=== PATIENT | male | born 1980 | race Caucasian/White ===

== ENCOUNTER 2021-02-05 16:29 | Emergency (ER) | payer MEDICARE, MEDICAID, SELFPAY ==
[2021-02-05 16:47] VITALS: BP 141/95; BP 148/86; PULSE 105; PULSE 110; RESP 14; TEMP 36.9; O2SAT 95; O2SAT 98; BMI 29.0
[2021-02-05 17:07] VITALS: BP 128/92; PULSE 112; RESP 14; TEMP 36.8; O2SAT 97
[2021-02-05 18:17] VITALS: BP 138/65; PULSE 103; RESP 16
[2021-02-05 18:29] LABS: COVID-19 Test Negative (Negative); IDNOW Serial# 9DD0AD1C
[2021-02-05] MEDS: LORazepam 1 MG TABLET 2 MG PO (18:30)
--- NOTE | 2021-02-05 19:32 | ED_ITS ---
HPI - General Adult General Chief complaint: General Medical <PAXTON Walker - Last Filed: 02/05/21 20:40> Stated complaint: Anxiety <PAXTON Walker Last Filed: 02/05/21 20:40> Time Seen by Provider: 02/05/21 16:41 <PAXTON Walker Last Filed: 02/05/21 20:40> Source: patient <PAXTON Walker Last Filed: 02/05/21 20:40> Mode of arrival: ambulatory <PAXTON Walker Last Filed: 02/05/21 20:40> Limitations: no limitations <PAXTON Walker Last Filed: 02/05/21 20:40> History of Present Illness HPI narrative: 40-year-old male presents for racing thoughts, jesús, and panic attack prior to arrival. Patient was discharged from [facility] inpatient psychiatiatic unit yesterday for suicidal ideation. Patient states he stopped drinking 2 weeks ago, and was supposed to go to an outpatient program but did not want to go. He did want to go because he has a lot of stress at home, he is trying to adopt his son and it is difficult, his is 6 months , and he is living in the [facility], otherwise he will be homeless. States that today he has never been so manic. Patient states that he felt he was not making sense and like he was going to have a seizure and that he could not stop talking. States he had racing speech. He took 20 mg of Zyprexa, Suboxone, and gabapentin prior to arrival, but he still feels like he has racing thoughts. Feels he is seeing things, feels he sees things in the room, and sees people who are not in the room. States he has a history of bipolar, but no psychiatrist. Takes benzadrex, which he states is like [id number] methamphetamine. Patient has had a methamphetamine habit, has not used meth for some time. Denies SI, HI, self-harm. Denies any recent alcohol or drug use. <PAXTON Walker Last Filed: 02/05/21 20:40> MD complaint: jesús <PAXTON Walker Last Filed: 02/05/21 20:40> Onset (ago): day(s) (1) <PAXTON Walker Last Filed: 02/05/21 20:40> Related Data Home medications: Home Medications Medication Instructions Recorded Confirmed Wellbutrin XL 300 mg PO DAILY 02/05/21 02/05/21 buprenorphine 8 mg-naloxone 2 mg strip SUBLINGUAL 02/05/21 sublingual film (Suboxone) gabapentin 800 mg tablet 1 tab PO TID 02/05/21 02/05/21 olanzapine 20 mg tablet 1 tab PO BEDTIME 02/05/21 02/05/21 <PAXTON Walker Last Filed: 02/05/21 20:40> Allergies/adverse reactions: Allergies Allergy/AdvReac Type Severity Reaction Status Date / Time phenobarbital [PHENOBARBITAL] Allergy Unknown HALLUCINATI Unverified 02/18/20 19:02 ONS <PAXTON Walker Last Filed: 02/05/21 20:40> Review of Systems Constitutional: Constitutional: Denies chills, Denies fatigue, Denies fever(s) and Denies headache(s) <PAXTON Walker Last Filed: 02/05/21 20:40> Eyes: Eyes: Denies change in vision <PAXTON Walker Last Filed: 02/05/21 20:40> ENT: Denies dizziness, Denies otalgia, Denies headache(s), Denies disequilibrium, Denies post nasal drip and Denies sore throat <PAXTON Walker Last Filed: 02/05/21 20:40> Cardiovascular: Cardiovascular: Denies chest pain, Denies rapid heart rate and Denies dyspnea <PAXTON Walker Last Filed: 02/05/21 20:40> Respiratory: Respiratory: Denies chest congestion, Denies cough and Denies dyspnea <PAXTON Walker Last Filed: 02/05/21 20:40> Gastrointestinal: Gastrointestinal: Denies abdominal pain, Denies diarrhea, Denies nausea and Denies vomiting <PAXTON Walker Last Filed: 02/05/21 20:40> Genitourinary: Genitourinary: Reports no additional male genitourinary complaints <PAXTON Walker Last Filed: 02/05/21 20:40> Musculoskeletal: Musculoskeletal: Denies numbness and Reports tingling < PAXTON Walker - Last Filed: 02/05/21 20:40> Comments: Feels like the soles of his feet are tingly. <PAXTON Walker - Last Filed: 02/05/21 20:40> Integumentary/Breasts: Skin/Breast: Denies rash <PAXTON Walker - Last Filed: 02/05/21 20:40> Neurologic: Reports behavioral changes, Denies dizziness, Denies headache(s), Denies focal weakness, Denies numbness, Denies seizure-like activity, Denies Sensory deficit (Neuro), Reports tingling and Denies disequilibrium <PAXTON Walker Last Filed: 02/05/21 20:40> Comments: Feels like he might have a seizure although he is not diagnosed with a seizure disorder <PAXTON Walker Last Filed: 02/05/21 20:40> Psychiatric: Psychiatric: Reports behavioral changes, Reports difficulty concentrating, Reports panic attacks, Reports visual hallucinations, Denies homicidal ideation and Denies suicidal ideation <PAXTON Walker - Last Filed: 02/05/21 20:40> Endocrine: Endocrine: Denies fatigue <PAXTON Walker Last Filed: 02/05/21 20:40> [facility] Social History Social History: Social History Alcohol intake: never Patient Tobacco Use Status: Current everyday Tobacco user Use of substances other than those prescribed or required for medical reasons: No Advance Directives: No Advance Directives Information Provided: No <PAXTON Walker - Last Filed: 02/05/21 20:40> Physical Exam Vital Signs: Vital Signs: Last Vital Signs Temp 97.0 F 02/05/21 21:14 Pulse 102 H 02/05/21 21:14 Resp 18 02/05/21 21:14 BP 138/89 02/05/21 21:14 Pulse Ox 95 02/05/21 21:14 Body Mass Index 29.0 <PAXTON Walker Last Filed: 02/05/21 20:40> Vital Signs: Last Vital Signs Temp 97.0 F 02/05/21 21:14 Pulse 102 H 02/05/21 21:14 Resp 18 02/05/21 21:14 BP 138/89 02/05/21 21:14 Pulse Ox 95 02/05/21 21:14 Body Mass Index 29.0 <Rosaline Hernández [employer] [facility] Last Filed: 02/05/21 22:50> Const: General: alert, awake and in distress moderate (racing speech); No combative <PAXTON Walker Last Filed: 02/05/21 20:40> Nutritional Appearance: average body habitus <Gloria Devries [employer] [facility] Last Filed: 02/05/21 20:40> Orientation/consciousness: patient oriented x3 <Gloria Devries [employer] [facility] Last Filed: 02/05/21 20:40> HENMT: Head: Yes normal to inspection, Yes normocephalic and Yes atraumatic <PAXTON Walker Last Filed: 02/05/21 20:40> Ears: hearing grossly normal bilaterally <PAXTON Walker Last Filed: 02/05/21 20:40> General nose exam: Normal external nose present <Gloria Devries [employer] [facility] Last Filed: 02/05/21 20:40> Face and sinus: Yes normal facial exam <PAXTON Walker Last Filed: 02/05/21 20:40> Mouth: Normal oral and palatal mucosa present <PAXTON Walker Last Filed: 02/05/21 20:40> Throat: Yes posterior oropharynx normal <PAXTON Walker Last Filed: 02/05/21 20:40> Eyes: Conjunctivae: conjunctivae normal <PAXTON Walker Last Filed: 02/05/21 20:40> Pupils: Equal, round and reactive pupils present <Gloria Devries [employer] [facility] Last Filed: 02/05/21 20:40> EOM: EOMs intact bilaterally <PAXTON Walker Last Filed: 02/05/21 20:40> Neck: Neck: Yes normal visual inspection, Yes full ROM, Yes no meningeal signs, Yes trachea midline and Yes supple <PAXTON Walker Last Filed: 02/05/21 20:40> Resp: Effort & Inspection: normal respiratory effort <PAXTON Walker - Last Filed: 02/05/21 20:40> Auscultation: clear to auscultation bilaterally, no crackles, no rales, no rhonchi and no wheezes <Gloria Devries [employer] [facility] Last Filed: 02/05/21 20:40> Cardio: Rate: regular rate <Gloria Devries [employer] [facility] Last Filed: 02/05/21 20:40> Rhythm: regular rhythm <Gloria Devries [employer] [facility] Last Filed: 02/05/21 20:40> Heart sounds: S1 normal heart sound present and S2 normal heart sound present <Gloria Devries [employer] Last Filed: 02/05/21 20:40> GI: Inspection: Yes normal to inspection <Gloria Devries [employer] [facility] Last Filed: 02/05/21 20:40> Palpation (GI): Soft to palpation and nontender <Gloria Devries [employer] [facility] Last Filed: 02/05/21 20:40> Percussion: Yes normal to percussion <Gloria Devries [employer] [facility] Last Filed: 02/05/21 20:40> Auscultation: normal bowel sounds <Gloria Devries [employer] [facility] Last Filed: 02/05/21 20:40> : General: Yes no CVA tenderness <Gloria Devries [employer] [facility] Last Filed: 02/05/21 20:40> Back/Spine/Pelvis: Back: no CVA tenderness <Gloria Devries [employer] [facility] Last Filed: 02/05/21 20:40> Skin: General skin exam: no rashes or lesions noted <Gloria Devries [employer] [facility] Last Filed: 02/05/21 20:40> Neuro: General: patient oriented x3, gait normal, tone normal, moves all extremities, no meningeal signs and no focal motor deficits <Gloria Devries [employer] [facility] Last Filed: 02/05/21 20:40> Cranial nerves: Yes CN's II-XII intact bilaterally, Yes Facial sensation intact/muscles of mastication intact, Yes Equal, round and reactive pupils prese nt, Yes Bilaterally intact EOM present, Yes Nystagmus not present, Yes Normal facial strength present, Yes Midline tongue present, Yes Ability to bilaterally rotate head present and Yes Ability to bilaterally elevate shoulders present <PAXTON Walker Last Filed: 02/05/21 20:40> Cognition (Neuro): abnormal cognition (racing thoughts) <PAXTON Walker Last Filed: 02/05/21 20:40> Gait exam (Neuro): Normal gait present <PAXTON Walker Last Filed: 02/05/21 20:40> Motor exam (neuro): 5/5 motor strength present throughout and Pronator motor function not present <PAXTON Walker Last Filed: 02/05/21 20:40> Sensory Exam: No Sensory deficit (Neuro) <PAXTON Walker Last Filed: 02/05/21 20:40> Coordination: [id number] test normal and other <PAXTON Walker Last Filed: 02/05/21 20:40> Pupils: Normal pupillary reactivity/response: bilateral <PAXTON Walker Last Filed: 02/05/21 20:40> Extrem: General: Yes no clubbing, cyanosis or edema <PAXTON Walker Last Filed: 02/05/21 20:40> Psych: Appearance: disheveled <PAXTON Walker Last Filed: 02/05/21 20:40> Mental Status: other (manic) <PAXTON Walker Last Filed: 02/05/21 20:40> Speech and movement: Pressured speech present and Restless speech present <PAXTON Walker Last Filed: 02/05/21 20:40> Affect: Labile affect present <PAXTON Walker Last Filed: 02/05/21 20:40> Attitude: cooperative <PAXTON Walker - Last Filed: 02/05/21 20:40> Thought process: Flight of ideas present <PAXTON Walker Last Filed: 02/05/21 20:40> Thought content: suicidality, no homicidality and Hallucination(s) present visual <PAXTON Walker Last Filed: 02/05/21 20:40> Insight: Fair insight present (Psych) <PAXTON Walker Last Filed: 02/05/21 20:40> Course Course Course Narrative: 40-year-old male who was just discharged yesterday for 2 weeks inpatient psychiatric stay for suicidal ideation presents for the worst panic attack in his life that occurred just prior to arrival. On exam, patient has stable vitals, he has pressured speech and is jiggly and cannot stop talking long enough for me to listen to his lungs. I am able to follow patient's train of thought despite his ideas jumping around. I am concerned with his manic symptoms after he has taken 20 of Zyprexa and just being discharged from the hospital for SI. This patient has no follow-up and he has no psychiatrist. Concern for his safety. I did place patient on a Section 12 until he is seen and evaluated by crisis Signed patient out to Dr. Koehler pending crisis evaluation <PAXTON Walker - Last Filed: 02/05/21 20:40> Reevaluation(s) Reevaluation #1: Physician observation started at 10:50pm. He was seen by the CARE team and determined to require inpatient level of care. Patient placed in physician observation because patient is awaiting inpatient psych placement. . At the time observation was started patient's vital signs were stable. Patient is alert and oriented, speaking nonsensically. Neuro exam is non-focal. CV: RRR and lungs are clear. Will continue to monitor. <PAXTON Kc - Last Filed: 02/05/21 22:50> Medical Decision Making Lab Data Result diagrams: : 02/05/21 21:05 02/05/21 21:05 <PAXTON Walker - Last Filed: 02/05/21 20:40> Labs: Lab Results 02/05/21 02/05/21 02/05/21 Range/Units 17:54 20:22 20:50 WBC (4.8-10.8) X10*3/uL RBC (4.60-5.80) X10*6/uL Hgb (14.0-18.0) g/dl Hct (42-52) % MCV (80-98) fL MCH (27.0-33.0) pg MCHC (31.0-36.0) g/dl RDW (11.0-16.0) % Plt Count (160-400) X10*3/uL MPV (9.4-12.4) fL Immature Gran % (Auto) (0.0-0.4) % Neut % (Auto) (45-73) % Lymph % (Auto) (20-40) % Coleman % (Auto) (2-11) % Eos % (Auto) (0-4) % Baso % (Auto) (0-2) % Lymph # (Auto) (1.2-4.9) X10*3/uL Coleman # (Auto) (0.1-1.2) X10*3/uL Eos # (Auto) (0.0-0.4) X10*3/uL Baso # (Auto) (0.0-0.2) X10*3/uL Abs Immat Gran (auto) (0.00-0.03) X10*3/uL Absolute Neuts (auto) (2.0-8.3) X10*3/uL Absolute Nucleated RBC (0.0-0.012) X10*3/uL Nucleated RBC % (auto) (0.0-0.2) /100WBC Sodium (135-145) mmol/L Potassium (3.3-5.1) mmol/L Chloride (96-108) mmol/L Carbon Dioxide (22-29) mmol/L Anion Gap (12-20) BUN (9-16) mg/dL Creatinine (0.5-1.4) mg/dL Estim Creat Clear Calc Estimated GFR Random Glucose (60-115) mg/dL Calcium (8.4-10.2) mg/dL Total Bilirubin (0.0-1.0) mg/dL AST (5-37) U/L ALT (0-40) U/L Alkaline Phosphatase (39-117) U/L Total Protein (6.5-8.0) g/dL Albumin (3.5-5.0) g/dL Urine Color YELLOW Urine Appearance CLEAR Urine pH 6.0 (5.0-8.0) Ur Specific [place] 1.015 (1.005-1.025) Urine Protein NEG (NEG-TRACE) MG/DL Urine Glucose (UA) NEG (NEG) MG/DL Urine Ketones NEG (NEG) MG/DL Urine Blood NEG (NEG) Urine Nitrite NEG (NEG) Ur Leukocyte Esterase NEG (NEG) Urine Opiates Screen Not Detected (Not Detect) Urine Fentanyl Screen POSITIVE H (Not Detect) Ur Barbiturates Screen Not Detected (Not Detect) Ur Phencyclidine Scrn Not Detected (Not Detect) Ur Amphetamines Screen POSITIVE H (Not Detect) U Benzodiazepines Scrn Not Detected (Not Detect) Urine Cocaine Screen POSITIVE H (Not Detect) U Marijuana (THC) Screen POSITIVE H (Not Detect) COVID-19 (JULI) Negative (Negative) COVID-19 Clin Com See Note 02/05/21 02/05/21 Range/Units 21:05 21:05 WBC 7.9 (4.8-10.8) X10*3/uL RBC 4.25 L (4.60-5.80) X10*6/uL Hgb 12.9 L (14.0-18.0) g/dl Hct 37.9 L (42-52) % MCV 89.2 (80-98) fL MCH 30.4 (27.0-33.0) pg MCHC 34.0 (31.0-36.0) g/dl RDW 13.7 (11.0-16.0) % Plt Count 251 (160-400) X10*3/uL MPV 10.2 (9.4-12.4) fL Immature Gran % (Auto) 1.1 H (0.0-0.4) % Neut % (Auto) 41.5 L (45-73) % Lymph % (Auto) 33.1 (20-40) % Coleman % (Auto) 15.5 H (2-11) % Eos % (Auto) 7.9 H (0-4) % Baso % (Auto) 0.9 (0-2) % Lymph # (Auto) 2.6 (1.2-4.9) X10*3/uL Coleman # (Auto) 1.2 (0.1-1.2) X10*3/uL Eos # (Auto) 0.6 H (0.0-0.4) X10*3/uL Baso # (Auto) 0.1 (0.0-0.2) X10*3/uL Abs Immat Gran (auto) 0.09 H (0.00-0.03) X10*3/uL Absolute Neuts (auto) 3.3 (2.0-8.3) X10*3/uL Absolute Nucleated RBC 0.000 (0.0-0.012) X10*3/uL Nucleated RBC % (auto) 0.0 (0.0-0.2) /100WBC Sodium 139 (135-145) mmol/L Potassium 4.3 (3.3-5.1) mmol/L Chloride 106 (96-108) mmol/L Carbon Dioxide 24 (22-29) mmol/L Anion Gap 13 (12-20) BUN 16 (9-16) mg/dL Creatinine 0.99 (0.5-1.4) mg/dL Estim Creat Clear Calc 123.3 Estimated GFR > 60 Random Glucose 111 (60-115) mg/dL Calcium 9.4 (8.4-10.2) mg/dL Total Bilirubin 0.3 (0.0-1.0) mg/dL AST 28 (5-37) U/L ALT 34 (0-40) U/L Alkaline Phosphatase 61 (39-117) U/L Total Protein 6.9 (6.5-8.0) g/dL Albumin 4.2 (3.5-5.0) g/dL Urine Color Urine Appearance Urine pH (5.0-8.0) Ur Specific [place] (1.005-1.025) Urine Protein (NEG-TRACE) MG/DL Urine Glucose (UA) (NEG) MG/DL Urine Ketones (NEG) MG/DL Urine Blood (NEG) Urine Nitrite (NEG) Ur Leukocyte Esterase (NEG) Urine Opiates Screen (Not Detect) Urine Fentanyl Screen (Not Detect) Ur Barbiturates Screen (Not Detect) Ur Phencyclidine Scrn (Not Detect) Ur Amphetamines Screen (Not Detect) U Benzodiazepines Scrn (Not Detect) Urine Cocaine Screen (Not Detect) U Marijuana (THC) Screen (Not Detect) COVID-19 (JULI) (Negative) COVID-19 Clin Com <PAXTON Walker - Last Filed: 02/05/21 20:40> Lab Results 02/05/21 02/05/21 02/05/21 Range/Units 17:54 20:22 20:50 WBC (4.8-10.8) X10*3/uL RBC (4.60-5.80) X10*6/uL Hgb (14.0-18.0) g/dl Hct (42-52) % MCV (80-98) fL MCH (27.0-33.0) pg MCHC (31.0-36.0) g/dl RDW (11.0-16.0) % Plt Count (160-400) X10*3/uL MPV (9.4-12.4) fL Immature Gran % (Auto) (0.0-0.4) % Neut % (Auto) (45-73) % Lymph % (Auto) (20-40) % Coleman % (Auto) (2-11) % Eos % (Auto) (0-4) % Baso % (Auto) (0-2) % Lymph # (Auto) (1.2-4.9) X10*3/uL Coleman # (Auto) (0.1-1.2) X10*3/uL Eos # (Auto) (0.0-0.4) X10*3/uL Baso # (Auto) (0.0-0.2) X10*3/uL Abs Immat Gran (auto) (0.00-0.03) X10*3/uL Absolute Neuts (auto) (2.0-8.3) X10*3/uL Absolute Nucleated RBC (0.0-0.012) X10*3/uL Nucleated RBC % (auto) (0.0-0.2) /100WBC Sodium (135-145) mmol/L Potassium (3.3-5.1) mmol/L Chloride (96-108) mmol/L Carbon Dioxide (22-29) mmol/L Anion Gap (12-20) BUN (9-16) mg/dL Creatinine (0.5-1.4) mg/dL Estim Creat Clear Calc Estimated GFR Random Glucose (60-115) mg/dL Calcium (8.4-10.2) mg/dL Total Bilirubin (0.0-1.0) mg/dL AST (5-37) U/L ALT (0-40) U/L Alkaline Phosphatase (39-117) U/L Total Protein (6.5-8.0) g/dL Albumin (3.5-5.0) g/dL Urine Color YELLOW Urine Appearance CLEAR Urine pH 6.0 (5.0-8.0) Ur Specific [place] 1.015 (1.005-1.025) Urine Protein NEG (NEG-TRACE) MG/DL Urine Glucose (UA) NEG (NEG) MG/DL Urine Ketones NEG (NEG) MG/DL Urine Blood NEG (NEG) Urine Nitrite NEG (NEG) Ur Leukocyte Esterase NEG (NEG) Urine Opiates Screen Not Detected (Not Detect) Urine Fentanyl Screen POSITIVE H (Not Detect) Ur Barbiturates Screen Not Detected (Not Detect) Ur Phencyclidine Scrn Not Detected (Not Detect) Ur Amphetamines Screen POSITIVE H (Not Detect) U Benzodiazepines Scrn Not Detected (Not Detect) Urine Cocaine Screen POSITIVE H (Not Detect) U Marijuana (THC) Screen POSITIVE H (Not Detect) COVID-19 (JULI) Negative (Negative) COVID-19 Clin Com See Note 02/05/21 02/05/21 Range/Units 21:05 21:05 WBC 7.9 (4.8-10.8) X10*3/uL RBC 4.25 L (4.60-5.80) X10*6/uL Hgb 12.9 L (14.0-18.0) g/dl Hct 37.9 L (42-52) % MCV 89.2 (80-98) fL MCH 30.4 (27.0-33.0) pg MCHC 34.0 (31.0-36.0) g/dl RDW 13.7 (11.0-16.0) % Plt Count 251 (160-400) X10*3/uL MPV 10.2 (9.4-12.4) fL Immature Gran % (Auto) 1.1 H (0.0-0.4) % Neut % (Auto) 41.5 L (45-73) % Lymph % (Auto) 33.1 (20-40) % Coleman % (Auto) 15.5 H (2-11) % Eos % (Auto) 7.9 H (0-4) % Baso % (Auto) 0.9 (0-2) % Lymph # (Auto) 2.6 (1.2-4.9) X10*3/uL Coleman # (Auto) 1.2 (0.1-1.2) X10*3/uL Eos # (Auto) 0.6 H (0.0-0.4) X10*3/uL Baso # (Auto) 0.1 (0.0-0.2) X10*3/uL Abs Immat Gran (auto) 0.09 H (0.00-0.03) X10*3/uL Absolute Neuts (auto) 3.3 (2.0-8.3) X10*3/uL Absolute Nucleated RBC 0.000 (0.0-0.012) X10*3/uL Nucleated RBC % (auto) 0.0 (0.0-0.2) /100WBC Sodium 139 (135-145) mmol/L Potassium 4.3 (3.3-5.1) mmol/L Chloride 106 (96-108) mmol/L Carbon Dioxide 24 (22-29) mmol/L Anion Gap 13 (12-20) BUN 16 (9-16) mg/dL Creatinine 0.99 (0.5-1.4) mg/dL Estim Creat Clear Calc 123.3 Estimated GFR > 60 Random Glucose 111 (60-115) mg/dL Calcium 9.4 (8.4-10.2) mg/dL Total Bilirubin 0.3 (0.0-1.0) mg/dL AST 28 (5-37) U/L ALT 34 (0-40) U/L Alkaline Phosphatase 61 (39-117) U/L Total Protein 6.9 (6.5-8.0) g/dL Albumin 4.2 (3.5-5.0) g/dL Urine Color Urine Appearance Urine pH (5.0-8.0) Ur Specific [place] (1.005-1.025) Urine Protein (NEG-TRACE) MG/DL Urine Glucose (UA) (NEG) MG/DL Urine Ketones (NEG) MG/DL Urine Blood (NEG) Urine Nitrite (NEG) Ur Leukocyte Esterase (NEG) Urine Opiates Screen (Not Detect) Urine Fentanyl Screen (Not Detect) Ur Barbiturates Screen (Not Detect) Ur Phencyclidine Scrn (Not Detect) Ur Amphetamines Screen (Not Detect) U Benzodiazepines Scrn (Not Detect) Urine Cocaine Screen (Not Detect) U Marijuana (THC) Screen (Not Detect) COVID-19 (JULI) (Negative) COVID-19 Clin Com <PAXTON Kc - Last Filed: 02/05/21 22:50> Discharge Plan Discharge Clinical Impression: Jesús <PAXTON Walker - Last Filed: 02/05/21 20:40> Prescriptions: No Action gabapentin 800 mg tablet 1 tab PO TID RF: 0 olanzapine 20 mg tablet 1 tab PO BEDTIME RF: 0 buprenorphine-naloxone [Suboxone] 8-2 mg film sublingual RF: 0 Wellbutrin XL 300 mg PO DAILY RF: 0 <PAXTON Walker - Last Filed: 02/05/21 20:40>
--- NOTE | 2021-02-05 20:53 | PC.NURSE ---
Patient calm cooperative. Eating in room. Pending phlebotomy to draw labs and crisis consult.
[2021-02-05 20:59] LABS: Glucose Urine UA NEG (NEG); Leukocyte Esterase Urine NEG (NEG); Nitrite Urine NEG (NEG); Specific Gravity - Urine 1.015 (1.005-1.025); Urine Blood NEG (NEG); Urine Ketones NEG (NEG); Urine Protein NEG (NEG-TRACE)
[2021-02-05 21:03] LABS: Appearance Urine CLEAR; Color Urine YELLOW
[2021-02-05 21:11] LABS: MANUAL DIFF FLAG NO
[2021-02-05 21:14] VITALS: BP 138/89; PULSE 102; RESP 18; TEMP 36.1; O2SAT 95
[2021-02-05 21:14] LABS: Amphetamine Screen Urine POSITIVE (Not Detect); Barbiturates, Urine Not Detected (Not Detect); Benzodiazepines Screen Urine Not Detected (Not Detect); Cannabinoid Screen Urine POSITIVE (Not Detect); Cocaine Screen Urine POSITIVE (Not Detect); Fentanyl, urine POSITIVE (Not Detect); Opiate Screen Urine Not Detected (Not Detect); Phencyclidine Screen Urine Not Detected (Not Detect)
[2021-02-05 21:20] LABS: Basophils Absolute Auto 0.1 X10*3/uL (0.0-0.2); Basophils Percent Auto 0.9 % (0-2); Eosinophils Absolute Auto 0.6 X10*3/uL (0.0-0.4); Eosinophils Percent Auto 7.9 % (0-4); Hematocrit 37.9 % (42-52); Hemoglobin 12.9 g/dl (14.0-18.0); Imm Gran Abs Auto 0.09 X10*3/uL (0.00-0.03); Imm Gran Pct Auto 1.1 % (0.0-0.4); Lymphocytes Absolute Auto 2.6 X10*3/uL (1.2-4.9); Lymphocytes Percent Auto 33.1 % (20-40); Mean Corpuscular Hemoglobin 30.4 pg (27.0-33.0); Mean Corpuscular Volume 89.2 fL (80-98); Mean Platelet Volume 10.2 fL (9.4-12.4); Monocytes Absolute Auto 1.2 X10*3/uL (0.1-1.2); Monocytes Percent Auto 15.5 % (2-11); Neutrophils Absolute Auto 3.3 X10*3/uL (2.0-8.3); Neutrophils Percent Auto 41.5 % (45-73); Platelet Count 251 X10*3/uL (160-400); Red Blood Count 4.25 X10*6/uL (4.60-5.80); Red Cell Distribution Width 13.7 % (11.0-16.0); White Blood Count 7.9 X10*3/uL (4.8-10.8)
[2021-02-05 21:44] LABS: Alanine Aminotransferase 34 U/L (0-40); Albumin Level 4.2 g/dL (3.5-5.0); Alkaline Phosphatase 61 U/L (39-117); Anion Gap 13 (12-20); Aspartate Amino Transferase 28 U/L (5-37); Bilirubin Total 0.3 mg/dL (0.0-1.0); Blood Urea Nitrogen 16 mg/dL (9-16); Calcium 9.4 mg/dL (8.4-10.2); Carbon Dioxide 24 mmol/L (22-29); Chloride 106 mmol/L (96-108); Creatinine Clr Calc Pharmacy 123.3; Estimated Glomerular Filt Rate > 60; Glucose Random 111 mg/dL (60-115); Potassium 4.3 mmol/L (3.3-5.1); Sodium 139 mmol/L (135-145); Total Protein 6.9 g/dL (6.5-8.0)
--- NOTE | 2021-02-05 21:51 | MHC.CARE ---
Addendum entered by Gabriela Humphreys LCSW 02/05/21 22:08: [facility] has one clinician available after 11pm. This commercial insurance underwriter will be completing the crisis evaluation. Original Note: CARE team consult received. Pt will need to be referred to [facility] for evaluation. If a securities teller is not available, CARE team will assume management of the care. This commercial insurance underwriter reached out to Dianne at [facility] crisis intake who reported that a clinician will be available after 11pm, specifics of details not known. Plan is to follow up with [facility] supervisor bit and shank department at 11pm re: status.
--- NOTE | 2021-02-05 22:31 | PC.NURSE ---
Per care team, patient not responding to questions with appropriate answers, disoriented to situation. For this RN on initial assessment, patient was coherent, ao4, answering questions appropriately. Care team aware this is a change in patient behavior.
--- NOTE | 2021-02-05 22:53 | MHC.CARE ---
CARE team eval completed. Disposition is for inpt psychiatric admission. Plan of care discussed with Gianluca Koehler MD and Rosaline MATTA. Sect 12a signed by Dr. Koehler and placed in pt's chart. Assessment to follow.
[2021-02-06 03:14] VITALS: BP 122/95; PULSE 100; RESP 18; O2SAT 97
[2021-02-06] MEDS: LORazepam 0.5 MG TABLET PO (03:29)
--- NOTE | 2021-02-06 06:39 | PC.NURSE ---
Patient slept well, no distress observed/reported, compliant with medication, behavior appropriate, appetite good, patient's disposition per Care Team is section inpatient bed search, will continue to monitor.
--- NOTE | 2021-02-06 07:25 | PC.NURSE ---
patient awoke just after t/w's arrival asking appropriate questions regarding dc, appears in no distress
[2021-02-06] MEDS: buPROPion HCl XL 300 MG TAB.ER.24H PO (08:21)
[2021-02-06] MEDS: Gabapentin 400 MG CAPSULE 800 MG PO (08:21)
== END 2021-02-06 11:38 | disposition home or self-care (01) ==
PROVIDERS: Physician Assistant; Emergency Provider Emergency Medicine Emergency Medical Services
DX: F31.9 Bipolar disorder, unspecified (principal); R44.1 Visual hallucinations; F41.1 Generalized anxiety disorder; F43.0 Acute stress reaction; Z20.822 Contact with and (suspected) exposure to COVID-19; Z79.899 Other long term (current) drug therapy
CPT/HCPCS: 36415; 80053; 80307; 81003; 85025; 87635; 99284; 99285